=== PATIENT | female | born 1940 | race Caucasian/White ===

== ENCOUNTER 2020-12-22 09:44 | Emergency (ER) | payer MEDICARE, OTHER, SELFPAY ==
[2020-12-22 09:45] VITALS: BP 149/71; PULSE 39; RESP 15; TEMP 36.3; O2SAT 99; BMI 23.0
--- NOTE | 2020-12-22 09:51 | NURSING ---
NO OLD EKGS
--- NOTE | 2020-12-22 09:52 | EKG12_ITS ---
Test Reason : BRADYCARDIA Blood Pressure : / mmHG Vent. Rate : 092 BPM Atrial Rate : 013 BPM P-R Int : 000 ms QRS Dur : 098 ms QT Int : 374 ms P-R-T Axes : 000 070 240 degrees QTc Int : 462 ms Sinus rhythm 2:1 AV Block Low voltage QRS Nonspecific T wave abnormality Abnormal ECG Confirmed by KASSANDRA CORONA, BETTY ([id number]), editor greeting card SOFY PADILLA ([id number]) on 12/26/2020 9:12:41 AM Referred By: MARCIANO Confirmed By:GLENN CANNON MD
--- NOTE | 2020-12-22 09:52 | ED.VIS.GEN ---
History of Present Illness Chief Complaint: Chest Other Informant: Patient, Family Onset: Days Context: Gradual Onset Timing: Intermittent Current Severity: Mild Maximum Severity: Mild Narrative: The patient is a healthy 80-year-old female who presents to the emergency department at referral from her primary care. The patient went in for visit because she states she is been having some difficulty with her memory. On routine vitals, she was found to be bradycardic. An EKG was obtained which demonstrated concern for complete heart block. The patient states that she has intermittent palpitations, but has not been weak, lightheaded, or had near syncope. She states that she exerts herself, climb stairs, and walks without issue. She was referred over due to her persistent bradycardia. The patient is on no daily medications. She denies any chest pain or shortness of breath. Prior similar symptoms: No Recent Illness/Hospitalization: No Past Medical History - Allergies and Home Meds Allergies/Adverse Reactions: Allergies No Known Allergies Allergy (Verified 12/22/20 09:47) Primary Care Physician: Estella Reardon MD [Primary Care Provider] - Prior records reviewed: Yes Past Medical History: - - History of sarcoid Surgical History: noncontributory Review of Systems General: Denies: Chills, Fever, Sweats Eyes: Denies: Visual changes - bilaterally, Diplopia ENT: Denies: Rhinorrhea, Sore throat Cardiovascular: Reports: Palpitations. Denies: Chest pain Respiratory: Denies: Dyspnea, Cough, Dyspnea on exertion Gastrointestinal: Denies: Abdominal pain, Nausea, Vomiting, Diarrhea, Melena, Hematochezia Genitourinary: Denies: Dysuria, Hematuria, Frequency Musculoskeletal: Denies: Back pain, Extremity Pain Skin: Denies: Rash, Wounds Neurological: Denies: Headache, Weakness, Numbness Physical Exam Vital Signs/Narrative: Vital Signs Temp Pulse Resp BP Pulse Ox 12/22/20 09:45 97.3 F L 39 L 15 149/71 H 99 Inital Vital Signs reviewed: Yes General: Well nourished, Well developed, No Acute Distress Head: Normocephalic, Atraumatic Eyes: Perrl, EOMI ENT: Moist mucous membranes, No rhinorrhea Neck: Supple, Nontender Cardiovascular: No murmurs, Bradycardia Respiratory: No distress, CTA bilaterally, Chest nontender Abdomen: Soft, Nontender, Nondistended, Normal bowel sounds Back: Nontender, Normal Inspection Extremities: Nontender, No edema Skin: Normal color, No rash Neurological: Alert, Oriented x3, Cranial nerves II-XII grossly intact, Normal Strength, Normal Sensation Psychological: Normal affect, Normal Mood Diagnostic/Tx/Re-eval Clinical Impression(s) from Imaging Studies Chest X-Ray 12/22/20 10:05 IMPRESSION: Prominence of the pulmonary arteries bilaterally. Findings suggest mild degree of increased markings in the right upper lobe. Electronically Signed: George Alonso MD at 10:25 EDT , Service support , Abnormal Lab Results 12/22/20 12/22/20 09:58 09:58 WBC 7.8 RBC 5.31 Hgb 15.1 H Hct 47.4 H MCV 89.3 MCH 28.4 MCHC 31.9 L RDW Std Deviation 46.9 H RDW Coeff of Mary 14.5 Plt Count 244 MPV 10.1 Immature Gran % (Auto) 0.400 Neut % (Auto) 72.3 H Lymph % (Auto) 16.0 L Willacy % (Auto) 9.9 Eos % (Auto) 0.8 Baso % (Auto) 0.6 Absolute Neuts (auto) 5.6 Absolute Lymphs (auto) 1.25 Nucleated RBC % 0 Sodium 137 Potassium 4.1 Chloride 103 Carbon Dioxide 29.0 Anion Gap 5 BUN 17 Creatinine 0.74 Estim Creat Clear Calc 32.23 Est GFR (MDRD) Af Amer 96 Est GFR (MDRD) Non-Af 80 BUN/Creatinine Ratio 22.8 H Glucose 97 Calcium 9.4 Magnesium 2.3 Total Bilirubin 0.80 AST 19 ALT 24 Alkaline Phosphatase 49 Troponin I < 0.015 Total Protein 7.5 Albumin 4.0 Globulin 3.5 Albumin/Globulin Ratio 1.1 - Rhythm Strip Rhythm Strip: 3rd degree block Rate: 38 - EKG Initial EKG Interpretation: - - Patient is an 80 third-degree heart block and a rate of 39. There is no acute ischemia. Prior: No Prior - Medical Decision Making Patient presents with asymptomatic bradycardia. EKG was obtained. It does demonstrate third-degree heart block. The patient has not been hypotensive. She is had no near syncopal symptoms. Patient was observed. I did discuss her case promptly with Dr. Waddell. Unfortunately, our cardiology physician who does pacemakers is out of town. He did recommend transfer. Initially, patient was discussed with [facility] but they do not have bed availability. The patient was discussed with [facility] and accepted by Dr. Perez. At no time has she become symptomatic. She will be transferred by [facility] as the patient is likely going to need permanent pacemaker placement. Impression 1. Third-degree heart block - Critical Care Time Critical care time (excluding procedures): 30-74 minutes, Discussing w/Patient &/or Family/Repairer Recreational Vehicle, Discussing w/Consultants, Arranging Admission or Transfer ED Disposition - Plan for ED Patient: Referrals: Estella Reardon MD [Primary Care Provider] -
--- NOTE | 2020-12-22 10:05 | RAD_ITS ---
STUDY: X-RAY CHEST REASON FOR EXAM: Female, 80 years old. Sob TECHNIQUE: Single AP portable view of the chest. COMPARISON: None. FINDINGS: EKG electrodes are seen. Mild increased markings are seen in the right upper lobe. Early infiltrate should be ruled out. There is no demonstrated pleural abnormality. There is borderline cardiomegaly. Normal mediastinum and gabby. There is prominence of the pulmonary hilar arteries without peripheral pulmonary vascular congestion, suggesting pulmonary hypertension. There is atherosclerotic tortuosity of the aortic arch and descending thoracic aorta. Normal visualized thoracic spine. Normal visualized ribs, clavicles, and shoulders. There is no demonstrated abnormality of the visualized soft tissue structures of the upper abdomen. RAD/Chest 1 View (Portable) IMPRESSION: Prominence of the pulmonary arteries bilaterally. Findings suggest mild degree of increased markings in the right upper lobe. Electronically Signed: George Alonso MD at 10:25 EDT , Service support ,
[2020-12-22 10:09] LABS: Absolute Lymphocyte Count 1.25 X10^3/uL (0.83-4.51); Absolute Neutrophil Count 5.6 X10^3/uL (2.0-7.7); Basophil# 0.05 X10^3/uL; Basophil% 0.6 % (0-1); Eosinophil# 0.06 X10^3/uL; Eosinophils% 0.8 % (0-5); Hematocrit 47.4 % (37-47); Hemoglobin 15.1 g/dL (12.0-15.0); Lymphocyte # 1.25 X10^3/ul (0.83-4.51); Mean Corp Hgb Conc 31.9 g/dL (32-36); Mean Corpuscular Hgb 28.4 pg (27.0-32.0); Mean Corpuscular Volume 89.3 fL (81-99); Mean Platelet Vol. 10.1 fl (6.2-12.0); Monocyte# 0.77 X10^3/uL; Monocyte% 9.9 % (0-10); NRBC Flagged by Analyzer 0 % (0-5); Neutrophil # 5.63 X10^3/uL (2.7-7.7); Neutrophil % 72.3 % (47-70); Platelet Count 244 K/mm3 (150-450); RBC Distribution Width CV 14.5 % (11.6-14.6); RBC Distribution Width SD 46.9 fl (35.1-43.9); Red Blood Count 5.31 M/mm3 (4.2-5.4); White Blood Count 7.8 K/mm3 (4.4-11.0)
[2020-12-22 10:28] LABS: ALB/GLOB Ratio 1.1 RATIO (0.9-2.4); AST(SGOT) 19 U/L (15-37); Alanine Aminotransfer ALT/SGPT 24 U/L (13-56); Alkaline Phosphatase 49 U/L (45-117); Anion Gap 5 (5-15); BUN 17 mg/dL (7-18); BUN/Creat Ratio 22.8 RATIO (10-20); Calcium,Total 9.4 mg/dL (8.5-10.1); Chloride 103 mmol/L (98-107); Creatinine, Serum 0.74 mg/dL (0.55-1.02); EST Glomerular Filtration Rate 80 mL/min (>60); Est Glom Filt Rate - Afr Amer 96 mL/min (>60); Estimated Creatinine Clearance 32.23 ml/min; Globulin 3.5 g/dL (2.2-4.2); Glucose 97 mg/dL (74-106); Magnesium 2.3 mg/dL (1.6-2.6); Potassium 4.1 mmol/L (3.5-5.1); Protein, Total 7.5 g/dL (6.4-8.2); Sodium Level 137 mmol/L (136-145)
--- NOTE | 2020-12-22 11:07 | NURSING ---
FACESHEET FAXED TO [facility]
[2020-12-22 11:26] VITALS: BP 156/59; PULSE 37; RESP 18; O2SAT 97
--- NOTE | 2020-12-22 11:38 | NURSING ---
1122 FAXED EKG TO [facility] 1137 HAD RADIOLOGY TRANSMIT XRAY
--- NOTE | 2020-12-22 11:45 | NURSING ---
[facility] 15 NURSE TO NURSE [phone]
--- NOTE | 2020-12-22 11:54 | NURSING ---
CALLED [facility], ETA IS 45 MIN
[2020-12-22 12:30] VITALS: BP 155/62; PULSE 36; RESP 16; O2SAT 97
--- NOTE | 2020-12-22 12:32 | ED.RN ---
pt remains asymptomatic
[2020-12-22 13:13] VITALS: BP 163/60; PULSE 37; RESP 14; O2SAT 96
== END 2020-12-22 13:41 | disposition short-term general hospital (02) ==
LOC: ED 10:38
PROVIDERS: Emergency Provider Emergency Medicine; PCP Internal Medicine
DX: I44.2 Atrioventricular block, complete (principal)
CPT/HCPCS: 71045; 80053; 83735; 84484; 85025; 87426; 93005; 99285; A4216

== ENCOUNTER → 2022-01-14 | Outpatient (CLI) | payer MEDICARE, OTHER, SELFPAY ==
[2022-01-23 11:10] LABS: Free Kappa Light Chains 16.3 mg/L (3.3-19.4); Free Lambda Light Chains 8.4 mg/L (5.7-26.3)
== END | disposition home or self-care (01) ==
LOC: MTLAB 10:04
PROVIDERS: PCP Internal Medicine; Referring Provider Psychiatry & Neurology Neurology; Visit Provider Psychiatry & Neurology Neurology
DX: F03.90 Unspecified dementia, unspecified severity, without behavioral disturbance, psychotic disturbance, mood disturbance, and anxiety (principal)
CPT/HCPCS: 36415; 82746; 83883; 84425

== ENCOUNTER → 2022-01-17 | Outpatient (CLI) | payer MEDICARE, OTHER, SELFPAY ==
--- NOTE | 2022-01-17 07:54 | CT_ITS ---
STUDY: CT BRAIN WITHOUT CONTRAST REASON FOR EXAM: Female, 81 years old. Dementia -- Due to cardiac pacemaker, pt unable to have MRI RADIATION DOSAGE (If Supplied By Facility): CTDIvol = ( 44.99 ) mGy, DLP = ( 745.49 ) mGycm TECHNIQUE: Transaxial CT imaging of the brain was performed without administration of intravenous contrast material. Individualized dose optimization techniques were used for this CT. COMPARISON: No relevant priors. FINDINGS: Normal soft tissue structures. Normal calvarium. There is mild cerebral atrophy with widening of the extra-axial spaces and ventricular dilatation. There are areas of decreased attenuation within the white matter tracts of the supratentorial brain, consistent with microvascular disease changes. Normal basal ganglia and thalami. Normal brainstem. Normal cerebellum. There is no intracranial hemorrhage. There are no findings of an acute ischemic infarction. Atherosclerotic calcification of the vertebral arteries and cavernous portions of the internal carotid arteries bilaterally. Normal visualized paranasal sinuses. CT/Brain/Head without Contrast IMPRESSION: Chronic involutional changes of the brain. Electronically Signed: George Alonso MD at 9:15 EDT ,
== END | disposition home or self-care (01) ==
LOC: CT 07:53
PROVIDERS: PCP Internal Medicine; Referring Provider Psychiatry & Neurology Neurology; Visit Provider Psychiatry & Neurology Neurology
DX: F03.90 Unspecified dementia, unspecified severity, without behavioral disturbance, psychotic disturbance, mood disturbance, and anxiety (principal)
CPT/HCPCS: 70450

== ENCOUNTER → 2023-12-08 | Outpatient (CLI) | payer MEDICARE, SELFPAY | END | disposition home or self-care (01) | PROVIDERS: PCP Internal Medicine; Referring Provider Psychiatry & Neurology Neurology; Visit Provider Psychiatry & Neurology Neurology | DX: F03.90 Unspecified dementia, unspecified severity, without behavioral disturbance, psychotic disturbance, mood disturbance, and anxiety (principal) | CPT/HCPCS: 36415 ==